=== PATIENT | male | born 1965 | race Caucasian/White ===

== ENCOUNTER 2021-12-05 23:21 | Emergency (ER) | payer OTHER ==
[~2021-12-05] VITALS: Ht 177.8 cm; Wt 81.6 kg
[2021-12-05 23:26] VITALS: BP 120/77
[2021-12-06] MEDS ORDERED: KETOROLAC TROMETH 60MG/2ML VIAL IM ONE (01:45)
[2021-12-06] MEDS ORDERED: ACETAMINOPHEN 500 MG TAB PO ONE (04:00)
[2021-12-06] MEDS ORDERED: HYDROcodone-ACET 5/325MG TAB PO ONE (06:45)
[2021-12-06] MEDS ORDERED: methylPREDNISolone SOD SUCC 125 MG/2 ML VL IM ONE (06:45)
== END 2021-12-06 07:09 | disposition home or self-care (01) ==
LOC: ER 23:21 → EDBD 23:21 → ER 12-06 07:09
DX: M10.062 Idiopathic gout, left knee (principal)
CPT/HCPCS: 73562; 73630; 96372; 99284; J1885; J2930